=== PATIENT | female | born 1985 | race Caucasian/White ===

== ENCOUNTER 2025-03-22 13:00 | Emergency (ER) | payer SELFPAY ==
[~2025-03-22] VITALS: Ht 162.6 cm; Wt 67.1 kg
[2025-03-22 13:05] VITALS: BP 124/89; PULSE 118; RESP 18; TEMP 98.4; O2SAT 99
--- NOTE | 2025-03-22 13:16 | ERN ---
ED Note History of Present Illness Stated Complaint: DOG BITE Chief Complaint: Animal Bite Time Seen by MD: 13:01 Dictation: PATIENT IS A 39-YEAR-OLD FEMALE HERE WITH HER WITH COMPLAINTS OF A DOG BITE WITH A SUPERFICIAL ABRASION AND PUNCTURE WOUND TO THE RIGHT FOREARM APPROXIMATE AN HOUR PRIOR TO ARRIVAL. SHE STATES THE DOG DOES NOT BELONG TO THEM BUT IS FAMILIAR IN THE NEIGHBORHOOD AND CAN BE QUARANTINE. SHE DID NOT CALL POLICE DEPARTMENT. HER LAST TETANUS SHOT IS GREATER THAN 10 YEARS AGO SHE HAS NO ALLERGIES TO MEDICINE. Allergies: Coded Allergies: No Known Allergies (Unverified Allergy, Unknown, 01/05/25) Past Medical History Past Medical History: No Pertinent History Surgical History: Social History: Negative, Lives with family History: Not Applicable RN Note Reviewed/Agreed w/PFSH: Yes Review of System Dictation CONSTITUTIONAL: NEGATIVE EXCEPT FOR HPI HEAD/FACE: NEGATIVE EXCEPT FOR HPI EENT: NEGATIVE EXCEPT FOR HPI RESPIRATORY: NEGATIVE EXCEPT FOR HPI GASTROINTESTINAL/ABDOMINAL: NEGATIVE EXCEPT FOR HPI GENITOURINARY: NEGATIVE EXCEPT FOR HPI MUSCULOSKELETAL: NEGATIVE EXCEPT FOR HPI PUNCTURE WOUND TO LATERAL ASPECT RIGHT FOREARM, SUPERFICIAL ABRASION WITH NO REPAIR NEEDED TO MEDIAL ASPECT INTEGUMENTARY: NEGATIVE EXCEPT FOR HPI NEUROLOGICAL/PSYCH: NEGATIVE EXCEPT FOR HPI HEMATOLOGIC/LYMPHATIC: NEGATIVE EXCEPT FOR HPI ALL SYSTEMS NEGATIVE, EXCEPT NOTED ABOVE. 13 POINT REVIEW OF SYSTEMS ASSESSED AND ALL NEGATIVE EXCEPT FOR ABOVE. Initial Vital Sign VS Vital Signs Date Time Temp Pulse Resp B/P (MAP) Pulse Ox O2 Delivery O2 Flow Rate FiO2 03/22/25 13:00 98.4 118 18 124/89 99 Room Air Physical Exam Dictation VITAL SIGNS REVIEWED GENERAL APPEARANCE: ALERT, ORIENTED X 3, MODERATE ACUTE DISTRESS, WELL DEVELOPED, NOURISHED. HEAD AND FACE: NON-TRAUMATIC. EYES: PERRL, PINK CONJUNCTIVAS, EYELID NO TRAUMA, ANTERIOR CHAMBER WITH ARCUS SENILIS. EARS: PINNAS INTACT AND NO SIGNS OF TRAUMA OR ERYTHEMA EAR CANALS CLEAR AND NO DISCHARGE TM NO ERYTHEMA NOSE: NO DISCHARGE, NO BLEEDING. OROPHARYNX: MOUTH NORMAL, TONGUE PINK, PHARYNX CLEAR,NO ERYTHEMA, TONSILS NO EXUDATES, NO ABSCESSES NOTED, MUCOUS MEMBRANE MOIST NECK: SUPPLE, NON-TENDER, NO THYROMEGALY, NO MASSES, NO JVD, NO BRUITS BREAST:DEFERRED CHEST:NO TENDERNESS, NO CREPITUS, NO PARADOXICAL MOVEMENT, NO RETRACTIONS LUNGS:CLEAR, WELL-VENTILATED, SYMMETRIC, NO RALES, NO WHEEZING, NO RHONCHI, NO STRIDOR, GOOD BREATH SOUNDS BILATERALLY HEART: REGULAR RATE, REGULAR RHYTHM, NO MURMUR, NO GALLOPS VASCULAR: NO PERIPHERAL EDEMA, ABDOMEN: SOFT, POSITIVE BOWEL SOUNDS, NONDISTENDED, NO GUARDING, NONTENDER, NO REBOUND, NO MASSES NO HEPATOMEGALY, NO SPLENOMEGALY, NO BEACH'S SIGN, NO HERNIAS. RECTAL: DEFERRED GENITAL: DEFERRED NEUROLOGICAL: NORMAL SPEECH, MOTOR FUNCTION INTACT, SENSORY FUNCTION INTACT MUSCULOSKELETAL: NECK NONTENDER, FULL RANGE OF MOTION, BACK NONTENDER, FULL RANGE OF MOTION, EXTREMITIES: NONTENDER, FULL RANGE OF MOTION SKIN: COLOR PUNCTURE WOUND TO RIGHT LATERAL FOREARM. NO REPAIR REQUIRED. 2.5 CM SUPERFICIAL ABRASION TO MEDIAL RIGHT FOREARM. NO REPAIR REQUIRED LYMPHATIC: DEFERRED Results (Laboratory/Radiology) Labs Reviewed?: Yes ED Course ED Course Orders Procedure Category Date Status Time Neomy PHA 03/22/25 Complete Sulf/Bacitra/Polymyxin 13:30 Hydrocodone/Apap PHA 03/22/25 Complete 5/325 ([place] 5/325mg) 13:30 Tetanus,Diphtheria PHA 03/22/25 Complete Tox [Adult] (Diphther 13:30 Amox/Clav 875/125mg PHA 03/22/25 Complete Tab (Augmentin 875-1 13:30 *Nursing CPOE 03/22/25 Transmitted Communication: 13:15 Current Medications Medications (Trade) Dose Ordered Sig/Buddy Route PRN Reason Start Time Stop Time Status Last Admin Dose Admin Acetaminophen/ Hydrocodone Bitart (NORco 5/325MG) 1 tab ONCE ONCE PO 03/22/25 13:30 03/22/25 13:31 DC 03/22/25 13:26 Amoxicillin/ Clavulanate Potassium (Augmentin 875-125 Tablet) 1 each ONCE ONCE PO 03/22/25 13:30 03/22/25 13:31 DC 03/22/25 13:26 Neomycin/ Polymyxin/ Bacitracin (Triple Antibiotic Ointment) 1 appl ONCE ONCE TP 03/22/25 13:30 03/22/25 13:31 DC 03/22/25 13:26 Tetanus/ Diphtheria Toxoids Adsorbed (DiphthERIA-teTANUS TOXOID [ADULT]/ DECAVAC) 0.5 ml ONCE ONCE IM 03/22/25 13:30 03/22/25 13:31 DC 03/22/25 13:28 Vital Signs Date Time Temp Pulse Resp B/P (MAP) Pulse Ox O2 Delivery O2 Flow Rate FiO2 03/22/25 13:00 98.4 118 18 124/89 99 Room Air 1340/REPORT WAS GIVEN TO POLICE DEPARTMENT. PATIENT TOLD FOLLOW UP WITH HER PRIMARY CARE DOCTOR AND COMPLETE POLICE REPORT. TAKE ANTIBIOTICS Medical Decision Making MDM MEDICAL DECISION-MAKING BASED, ON TETANUS UPDATE INITIATION OF AUGMENTIN 875, WOUND CARE AND POLICE REPORT PATIENT IS STARTED ON [id number] AND DISCHARGED HOME WITH PRESCRIPTION WOUND CARE INSTRUCTIONS GIVEN AND SHE AND MADE AWARE TO COMPLETE THE POLICE REPORT DX & DISP Disposition: Discharge Departure Impression: Primary Impression: Puncture wound of right forearm Additional Impressions: Abrasion of right forearm, initial encounter, Dog bite of arm Condition: Stable Scripts Ibuprofen (Ibuprofen 800 mg Tab) 800 Mg Tab 800 MG PO Q8H PRN for fever or pain, #30 TAB 0 Refills Prov: KAMRYN GOLDMAN RECORD MAKER 03/22/25 Amoxicillin/Potassium Clav (Amox Tr-K Clv 875-125 mg Tab) 875 Mg-125 Mg Tablet 1 EACH PO BID for 7 Days, #14 TAB 0 Refills Prov: KAMRYN GOLDMAN RECORD MAKER 03/22/25 Additional Instructions: FOLLOW-UP WITH PRIMARY CARE PROVIDER IN 1 TO 2 DAYS. TAKE MEDICATIONS DIRECTED HERE IN THE EMERGENCY ROOM. OKAY TO CONTINUE HOME MEDICATIONS UNLESS OTHERWISE DISCUSSED DURING YOUR VISIT IN THE EMERGENCY ROOM TODAY. RETURN TO YOUR NEAREST EMERGENCY ROOM IF SYMPTOMS WORSEN OR IF THERE IS NO IMPROVEMENT. CALL 911 IF YOU NEED IMMEDIATE ASSISTANCE. TAKE TYLENOL OR MOTRIN OVE [id number] NEEDED AND IF NO CONTRAINDICATIONS ARE PRESENT. INCREASE ORAL HYDRATION. A WOUND CULTURE OR URINE CULTURE WAS ORDERED HERE IN THE EMERGENCY ROOM DEPARTMENT PLEASE FOLLOW-UP WITH PRIMARY CARE PROVIDER AND ADVISE THEM TO GET REPEAT PORTS FROM OUR FACILITY. IF YOU HAD ANY LIVIA WRAP/SPLINTS THAT WERE APPLIED HERE, PLEASE DO NOT REMOVE THEM UNTIL YOU SEE YOUR PRIMARY CARE OR SPECIALTY. TAKE ANTIBIOTICS DIRECTED UNTIL GONE., TRIPLE ANTIBIOTIC OINTMENT/[id number] TIMES A DAY FOR FIVE DAYS TO WOUNDS. COMPLETE FOR REPORT TO THE POLICE DEPARTMENT TODAY. FOLLOW UP WITH ONE OF THE DOCTORS ON THE LIST PROVIDED YOU IN THE NEXT 1-2 DAYS. Referrals: SELF,REFERRAL (PCP) Time of Disposition: 13:45 I have reviewed the case, and I agree with, Diagnosis and Plan KAMRYN GOLDMANP Mar 22, 2025 13:16
[2025-03-22] MEDS: NEOMY SULF/BACITRA/POLYMYXIN B 1 EACH PACKET TP ONE (13:26)
[2025-03-22] MEDS: AMOX/CLAV 875/125MG TAB PO ONE (13:26)
[2025-03-22] MEDS: HYDROcodone/APAP 5/325 1 TAB TABLET PO ONE (13:26)
[2025-03-22] MEDS ORDERED: IBUP-2077 PO (13:45)
[2025-03-22] MEDS ORDERED: AMOX1TAB16 PO (13:45)
--- NOTE | 2025-03-22 13:54 | NUR ---
CARLO SIDHU CALLED TO REPORT DOF BITE. PT WAS INFORMED THAT AN OFFICER WILL BE CONTACTING HER.
--- NOTE | 2025-03-22 13:56 | NUR ---
PT CURRENTLY ON THE PHONE WITH THE OFFICER MAKING THE REPORT.
== END 2025-03-22 14:06 | disposition home or self-care (01) ==
LOC: EDH 13:00
DX: S50.811A Abrasion of right forearm, initial encounter (principal); W54.0XXA Bitten by dog, initial encounter; Y93.9 Activity, unspecified; Y92.89 Other specified places as the place of occurrence of the external cause; Y99.8 Other external cause status
CPT/HCPCS: 90471; 90714; 99283

== ENCOUNTER 2025-03-28 12:40 | Emergency (ER) | payer SELFPAY ==
[~2025-03-28] VITALS: Ht 162.6 cm; Wt 67.1 kg
[~2025-03-28 12:40] MED LIST: AMOX1TAB16 PO; IBUP-2077 PO
--- NOTE | 2025-03-28 12:51 | ERN ---
ED Note History of Present Illness Stated Complaint: PT HERE FOR ANXIETY. STOPPED DRINKING AND CP Chief Complaint: Chest Pain Time Seen by MD: 12:47 Dictation: In his a 39-year-old female coming in today via EMS with complaints of chest pain that lasted just a few minutes onset 1 hour prior to arrival. It did not radiate there was no shortness a breath no nausea vomiting no jaw pain no arm pain no back pain. Denies any history of CAD. Her main complaint is she has been abusing alcohol daily for the last three years, her last alcohol intake was 12 hours ago. She states she is feeling jittery and having some tremors. She states she just recently moved here from [place], was treated for alcohol with abuse in [place] with the aunt abuse. Denies suicidal or homicidal ideation. EMS states they gave her 250 mL normal saline with 100 mg thiamine IV prior to arrival. No primary care Allergies: Coded Allergies: No Known Allergies (Unverified Allergy, Unknown, 01/05/25) Home Meds Active Scripts Ibuprofen (Ibuprofen 800 mg Tab) 800 Mg Tab, 800 MG PO Q8H PRN for fever or pain, #30 TAB 0 Refills Prov:KAMRYN GOLDMAN COFFEE SHOP ATTENDANT 03/22/25 Amoxicillin/Potassium Clav (Amox Tr-K Clv 875-125 mg Tab) 875 Mg-125 Mg Tablet, 1 EACH PO BID for 7 Days, #14 TAB 0 Refills Prov:KAMRYN GOLDMAN [employer]EE SHOP ATTENDANT 03/22/25 Past Medical History Past Medical History: No Pertinent History Surgical History: Social History: ETOH, Negative, Lives with family History: Not Applicable RN Note Reviewed/Agreed w/PFSH: Yes Review of System Dictation CONSTITUTIONAL: Negative except for HPI HEAD/FACE: Negative except for HPI EENT: Negative except for HPI RESPIRATORY: Negative except for HPI chest pain GASTROINTESTINAL/ABDOMINAL: Negative except for HPI GENITOURINARY: Negative except for HPI MUSCULOSKELETAL: Negative except for HPI INTEGUMENTARY: Negative except for HPI NEUROLOGICAL/PSYCH: Negative except for HPI alcohol abuse daily/tremor HEMATOLOGIC/LYMPHATIC: Negative except for HPI All Systems Negative, Except as noted above. 13 point review of systems assessed and all negative except for above. Initial Vital Sign VS Vital Signs Date Time Temp Pulse Resp B/P (MAP) Pulse Ox O2 Delivery O2 Flow Rate FiO2 03/28/25 12:58 97.7 91 15 142/87 98 Room Air 0 03/28/25 13:21 21 Physical Exam Dictation Vital Signs reviewed General Appearance: Alert, oriented x 3, mild/anxious acute distress, well developed, nourished. Head and Face: non-traumatic. Eyes: PERRL, pink conjunctivas, eyelid no trauma, anterior chamber with arcus senilis. Ears: Pinnas intact and no signs of trauma or erythema ear canals clear and no discharge TM no erythema Nose: No discharge, no bleeding. Oropharynx: Mouth normal, tongue pink, pharynx clear,no erythema, tonsils no exudates, no abscesses noted, mucous membrane moist Neck: Supple, non-tender, no thyromegaly, no masses, no JVD, no bruits Breast:Deferred Chest:No tenderness, no crepitus, no paradoxical movement, no retractions Lungs:Clear, well-ventilated, symmetric, no rales, no wheezing, no rhonchi, no stridor, good breath sounds bilaterally Heart: Regular rate, regular rhythm, no murmur, no gallops Vascular: no peripheral edema, Abdomen: Soft, positive bowel sounds, nondistended, no guarding, nontender, no rebound, no masses no hepatomegaly, no splenomegaly, no Gant's sign, no hernias. Rectal: Deferred Genital: Deferred Neurological: Normal speech, motor function intact, sensory function intact denies suicidal or homicidal ideation Musculoskeletal: Neck nontender, full range of motion, back nontender, full range of motion, Extremities: nontender, full range of motion Skin: Color pink, dry, no turgor, no rash, no lacerations, no abrasions, no contusions. Lymphatic: Deferred Results (Laboratory/Radiology) Laboratory/Radiology Laboratory Tests Test 03/28/25 13:14 03/28/25 13:19 White Blood Count 2.3 K/uL (4.8-10.8) L Red Blood Count 3.03 MIL/uL (4.00-5.50) L Hemoglobin 10.1 g/dL (12.0-16.0) L Hematocrit 31.6 % (36-48) L Mean Corpuscular Volume 104.3 fL (79-99) H Mean Corpuscular Hemoglobin 33.3 pg (27.0-33.0) H Mean Corpuscular Hemoglobin Concent 32.0 g/dL (32.0-36.0) Red Cell Distribution Width 17.5 % (11.0-15.5) H Platelet Count 113 K/uL (130-400) L Mean Platelet Volume 10.3 fL (7.5-10.5) Immature Granulocyte % (Auto) 0.9 % (0-1) Neutrophils (%) (Auto) 49.3 % (40.0-77.0) Lymphocytes (%) (Auto) 31.9 % (21.0-51.0) Monocytes (%) (Auto) 14.4 % (3.0-13.0) H Eosinophils (%) (Auto) 1.3 % (0.0-8.0) Basophils (%) (Auto) 2.2 % (0.0-5.0) Neutrophils # (Auto) 1.1 K/uL (1.8-7.7) L Lymphocytes # (Auto) 0.7 K/uL (1.0-4.8) L Monocytes # (Auto) 0.3 K/uL (0.1-1.0) Eosinophils # (Auto) 0.03 K/uL (0.00-0.70) Basophils # (Auto) 0.05 K/uL (0.00-0.20) Absolute Immature Granulocyte (auto 0.02 K/uL (0-1) Segmented Neutrophils % 53 % (40-70) Lymphocytes % (Manual) 38 % (22-44) Monocytes % (Manual) 6 % (2-9) Basophils % (Manual) 3 % (0-2) H Nucleated Red Blood Cells 0.0 % (0.0-0.19) Differential Comment MANUAL DIFFERENTIAL White Cell Morphology Comment CONSISTENT W/DIFF Platelet Morphology Comment ADEQUATE Red Blood Cell Morphology See comments Sodium Level 136 mmol/L (136-145) Potassium Level 3.6 mmol/L (3.5-5.1) Chloride Level 101 mmol/L (101-111) Carbon Dioxide Level 29 mmol/L (21-32) Blood Urea Nitrogen 6 mg/dL (7-18) L Creatinine 0.6 mg/dL (0.5-1.0) Glomerular Filtration Rate Calc 116 mL/min (>90) Random Glucose 103 mg/dL (70-105) Total Calcium 7.7 mg/dL (8.5-10.1) L Total Creatine Kinase 89 U/L (21-232) Troponin I High Sensitivity 4 ng/L (4-50) Serum Test, Qualitative NEGATIVE (NEGATIVE) Salicylates Level < 2.8 mg/dL (2.8-20.0) L Acetaminophen Level < 1 mcg/mL (10-30) L Serum Alcohol 103 mg/dL (0-10) H Urine Color YELLOW (YELLOW) Urine Appearance CLOUDY (CLEAR) H Urine pH 7.5 (5.0-8.0) Urine Specific [place] 1.021 (1.001-1.031) Urine Protein 20 mg/dL (NEGATIVE) H Urine Glucose (UA) NEGATIVE mg/dL (NEGATIVE) Urine Ketones NEGATIVE mg/dL (NEGATIVE) Urine Occult Blood NEGATIVE (NEGATIVE) Urine Nitrate NEGATIVE (NEGATIVE) Urine Bilirubin 0.5 mg/dL (NEGATIVE) H Urine Urobilinogen >=8.0 mg/dL (0.2-1.0) H Urine Leukocyte Esterase 25 Claribel/uL (NEGATIVE) H Urine RBC 2-5 /HPF (0-1) H Urine WBC 6-10 /HPF (0-1) H Urine Squamous Epithelial Cells MANY /HPF (0-2) Urine Bacteria FEW /HPF (None Seen) Urine Opiates Screen NEGATIVE (NEGATIVE) Urine Barbiturates Screen NEGATIVE (NEGATIVE) Urine Phencyclidine Screen NEGATIVE (NEGATIVE) Urine Amphetamines Screen NEGATIVE (NEGATIVE) Urine Benzodiazepines Screen NEGATIVE (NEGATIVE) Urine Cocaine Screen NEGATIVE (NEGATIVE) Urine Marijuana (THC) Screen NEGATIVE (NEGATIVE) Labs Reviewed?: Yes EKG: (+) NSR EKG Comment: 1305/EKG NORMAL SINUS RHYTHM/HEART RATE 77/AXIS NORMAL/NO ECTOPY ED Course ED Course Orders Procedure Category Date Status Time Drug Screen Urine LAB 03/28/25 Complete 12:47 Use The Ciwa-Ar CPOE 03/28/25 Transmitted Assmt. Tool 12:47 12 Lead Ekg Tracing- EKG 03/28/25 Resulted Technical 12:47 Troponin I High LAB 03/28/25 Complete Sensitivity 12:47 Cbc With Differential LAB 03/28/25 Complete 12:47 Alcohol, Blood LAB 03/28/25 Complete 12:47 Salicylate LAB 03/28/25 Complete 12:47 Acetaminophen LAB 03/28/25 Complete 12:47 Testing, LAB 10/31/25 Complete Serum Hcg 12:47 Urinalysis Profile LAB 03/28/25 Complete 12:47 Creatine Kinase, Total LAB 03/28/25 Complete 12:47 Basic Metabolic Panel LAB 03/28/25 Complete 12:47 Manual Differential LAB 03/28/25 Complete 13:14 Culture Urine ALONDRA 03/28/25 In Process 13:45 Ondansetron 4mg Inj PHA 03/28/25 Complete (Zofran 4mg Inj) 15:30 Diazepam 5 Mg/Ml 2 Ml PHA 03/28/25 Verified Syg (Valium 5 Mg/M 16:00 Current Medications Medications (Trade) Dose Ordered Sig/Buddy Route PRN Reason Start Time Stop Time Status Last Admin Dose Admin Ondansetron HCl (zoFRAN 4MG INJ) 4 mg ONCE ONCE IVP 03/28/25 15:30 03/28/25 15:31 DC 03/28/25 15:17 Vital Signs Date Time Temp Pulse Resp B/P (MAP) Pulse Ox O2 Delivery O2 Flow Rate FiO2 03/28/25 15:04 99.3 82 20 131/80 97 Room Air* 0 21 03/28/25 13:21 99.3 100 20 143/93 100 Room Air* 0 21 03/28/25 12:58 97.7 91 15 142/87 98 Room Air 0 PATIENT REMAINS ANXIOUS HOWEVER NO SEIZURE-LIKE ACTIVITY AND NOT TACHYCARDIC AT THIS TIME. SHE WILL BE GIVEN VALIUM IV PUSH FOR WITHDRAWAL SYMPTOMS SHE WILL BE DISCHARGED HOME WITH LIBRIUM AND AGREES SHE WILL FOLLOW UP WITH [facility] IN THE NEXT 1-2 DAYS. HER IS AT BEDSIDE AND VERY SUPPORTIVE. ALL QUESTIONS ANSWERED I STRONGLY ADVISED PATIENT TO NOT TAKE LIBRIUM AND TO DRINK ALCOHOL. HEART Score Response (Comments) Value History: Low suspicion (0) 0 EKG: Normal 0 Age: < 45yrs (0) 0 Risk Factors: No known risk factors (0) 0 Initial Troponin: Normal limit (0) 0 Total 0 Medical Decision Making MDM MDM: DIFFERENTIAL DIAGNOSIS: ALCOHOL ABUSE/POLYDRUG ABUSE/ELECTROLYTE IMBALANCE/DEHYDRATION/ANXIETY/ACS/AMI RATIONALE: TESTS CONSIDERED AND ORDERED SECONDARY TO SHARED DECISION MAKING INCLUDE: LABS/EKG PREVIOUS OUTSIDE RECORDS REVIEWED: OLD ER VISITS. RISK OF COMPLICATION AND/OR MORBIDITY OR MORTALITY OF PATIENT MANAGEMENT: NONE MEDICATIONS-PER MEDICATION RECONCILIATION NEED FOR HOSPITALIZATION: PATIENT DOES NOT MEET CRITERIA FOR HOSPITALIZATION. NONE NEED FOR EMERGENCY MAJOR/MINOR SURGERY: NO THERE ARE NO SOCIAL CONCERNS WITH THIS PATIENT. USES ALCOHOL DAILY. LAST ALCOHOL INTAKE APPROXIMATE 15 HOURS AGO PRESCRIPTION DRUG MANAGEMENT LIBRIUM PRESCRIPTIONS WILL INCLUDE SYMPTOMATIC CARE PATIENT'S PRIOR EXTERNAL MEDICAL RECORDS FROM OTHER ER VISITS WERE REVIEWED BY ME INDICATED. PRIOR TESTING AND RESULTS FROM PREVIOUS VISITS WERE REVIEWED. PRIOR TESTS WERE TAKEN INTO ACCOUNT WITH MEDICAL DECISION MAKING AND RESOURCE UTILIZATION, INDEPENDENT HISTORIAN/HISTORIANS WERE USED TO OBTAIN COMPLETE MEDICAL HISTORY. I INDEPENDENTLY INTERPRETED THE TEST THAT WERE PERFORMED, RESULTS WERE REVIEWED BY ME AND CONSIDERED FINDINGS ON RADIOLOGY IF ORDERED. MEDICAL MANAGEMENT AND EXAMINATION INTERPRETATION DISCUSSIONS WERE HAD BY ME WITH OTHER QUALIFIED HEALTHCARE PROFESSIONALS INDICATED FOR THE PATIENT'S CARE. DX & DISP Disposition: Discharge Departure Impression: Primary Impression: Alcohol abuse Additional Impressions: Alcohol withdrawal, Hypocalcemia, Acute alcohol intoxication, Acute cystitis Condition: Stable Scripts Chlordiazepoxide HCl (Librium 25 mg Cap) 25 Mg Cap 50 MG PO Q6HPRN for ALCOHOL WITHDRAWAL SYMPTOMS, #20 CAP 0 Refills Prov: KAMRYN GOLDMAN 03/28/25 Additional Instructions: Follow-up with primary care provider in 1 to 2 days. Take medications as directed here in the emergency room. Okay to continue home medications unless otherwise discussed during your visit in the emergency room today. Return to your nearest emergency room if symptoms worsen or if there is no improvement. Call 911 if you need immediate assistance. Take Tylenol or Motrin [id number] as needed and if no contraindications are present. Increase oral hydration. A wound culture or urine culture was ordered here in the emergency room department please follow-up with primary care provider and advise them to get repeat ports from our facility. If you had any Cole wrap/splints that were applied here, please do not remove them until you see your primary care or specialty. DO NOT DRINK ALCOHOL AND TAKE LIBRIUM. TAKE LIBRIUM EVERY 6 HOURS NEEDED FOR ALCOHOL WITHDRAWAL SYMPTOMS TO INCLUDE ANXIETY OR PALPITATIONS. CALL [facility] TODAY FOR FOLLOW UP AND REFERRAL TO AN ALCOHOL TREATMENT CENTER. Referrals: SELF,REFERRAL (PCP) Time of Disposition: 15:36 I have reviewed the case, and I agree with, Diagnosis and Plan KAMRYN GOLDMAN Mar 28, 2025 12:51
[2025-03-28 13:20] LABS: IMMATURE GRANULOCYTE ABSOLUTE 0.02 K/uL (0-1); NUCLEATED RED BLOOD CELLS 0.0 % (0.0-0.19); PLATELET COUNT (AUTO) 113 K/uL (130-400); RED BLOOD CELL COUNT(AUTO) 3.03 MIL/uL (4.00-5.50); RED CELL DISTRIBUTION WIDTH 17.5 % (11.0-15.5); WHITE BLOOD COUNT (AUTO) 2.3 K/uL (4.8-10.8)
--- NOTE | 2025-03-28 13:21 | EKG ---
[facility] Test Date: 2025-03-28 Test Time: 12:52:41 Pat Name: BRIANNA JEFFERSON Department: ED Room: Gender: F Experimental [employer]: [id number] : 1985 Requested By: KAMRYN GOLDMAN Order Number: [id number] Reading MD: Agus Portillo Measurements Intervals [place] Rate: 77 P: 37 OR: 169 QRS: -12 QRSD: 87 T: 19 QT: 388 QTc: 439 Interpretive Statements Sinus rhythm Low voltage, precordial leads No previous ECG available for comparison Electronically Signed On 03-28-2025 13:33:29 CDT by Agus Portillo Please click the below link to view image of tracing.
[2025-03-28 13:25] LABS: CREATININE 0.6 mg/dL (0.5-1.0); GLOMERULAR FILTR. RATE CALC 116 mL/min (>90); GLUCOSE,RANDOM 103 mg/dL (70-105); SODIUM SERUM 136 mmol/L (136-145); UREA NITROGEN, BLOOD 6 mg/dL (7-18)
[2025-03-28 13:28] LABS: APPEARANCE,URINE CLOUDY (CLEAR); GLUCOSE, URINE (UA) NEGATIVE (NEGATIVE); LEUKOCYTE ESTERASE ,URINE 25 Leu/uL (NEGATIVE); NITRATE,URINE NEGATIVE (NEGATIVE); OCCULT BLOOD,URINE NEGATIVE (NEGATIVE)
[2025-03-28 13:31] LABS: ALCOHOL, BLOOD 103 mg/dL (0-10); CREATINE KINASE, TOTAL 89 U/L (21-232)
[2025-03-28 13:35] LABS: AMPHET/METH SCREEN,URINE NEGATIVE (NEGATIVE); BARBITURATE SCREEN, URINE NEGATIVE (NEGATIVE); CANNABINOID SCREEN,URINE NEGATIVE (NEGATIVE); COCAINE SCREEN,URINE NEGATIVE (NEGATIVE)
[2025-03-28 13:40] LABS: ADD UA MICROSCOPIC YES
[2025-03-28 13:44] LABS: SQUAMOUS EPITHELIAL CELL,UR MANY /HPF (0-2)
[2025-03-28 14:17] LABS: BASOPHILS % (MANUAL) 3 % (0-2); LYMPHOCYTES % (MANUAL) 38 % (22-44); MAN.DIFF COMMENT-IMPRESSION MANUAL DIFFERENTIAL; MONOCYTES % (MANUAL) 6 % (2-9); SEGMENTED NEUTROPHILS % 53 % (40-70); WBC MORPHOLOGY CONSISTENT W/DIFF
[2025-03-28 14:18] LABS: PLATELET MORPHOLOGY COMMENT ADEQUATE
[2025-03-28 15:04] VITALS: BP 131/80; PULSE 82; RESP 20; TEMP 99.3; O2SAT 97
--- NOTE | 2025-03-28 15:10 | NUR ---
PATIENT REPORTS INCREASED NAUSEA AND TREMORS. CIWA REASSESSSED. ER DEPUTY SHERIFF LIEUTENANT INFORMED.
[2025-03-28] MEDS ORDERED: CHLO25CA6 PO (15:42)
== END 2025-03-28 16:04 | disposition home or self-care (01) ==
LOC: EDH 12:40
DX: F10.239 Alcohol dependence with withdrawal, unspecified (principal); E83.51 Hypocalcemia; N30.00 Acute cystitis without hematuria; F41.9 Anxiety disorder, unspecified; R07.9 Chest pain, unspecified; R25.1 Tremor, unspecified; Y90.5 Blood alcohol level of 100-119 mg/100 ml
CPT/HCPCS: 99284; 96374; 96375; 82550; 84484; 80048; 80305; 84703; 85025; 87086 ×2; 87186; 81001; 36415; 93005; G0481; J3360; J2405